=== PATIENT | male | born 1955 | race Asian ===

== ENCOUNTER → 2021-05-24 | Outpatient (CLI) | payer OTHER ==
[~2021-05-24] MED LIST: LIDOCAINE 4% 50 ML SOLUTION TP ONE
== END | disposition home or self-care (01) ==
LOC: HBOWC 11:26
PROVIDERS: ATTEND Podiatrist
DX: E11.622 Type 2 diabetes mellitus with other skin ulcer (principal); L97.322 Non-pressure chronic ulcer of left ankle with fat layer exposed; L97.111 Non-pressure chronic ulcer of right thigh limited to breakdown of skin; E11.40 Type 2 diabetes mellitus with diabetic neuropathy, unspecified; K21.9 Gastro-esophageal reflux disease without esophagitis; E78.5 Hyperlipidemia, unspecified; I48.91 Unspecified atrial fibrillation; I10 Essential (primary) hypertension; Z89.511 Acquired absence of right leg below knee; Z79.4 Long term (current) use of insulin; Z79.01 Long term (current) use of anticoagulants; Z89.021 Acquired absence of right finger(s); Z86.16 Personal history of COVID-19; Z87.891 Personal history of nicotine dependence; Z79.82 Long term (current) use of aspirin
CPT/HCPCS: 11042; 99205

== ENCOUNTER → 2021-06-07 | Outpatient (CLI) | payer OTHER | END | disposition home or self-care (01) | LOC: HBOWC 10:05 | PROVIDERS: ATTEND Podiatrist | DX: T87.81 Dehiscence of amputation stump (principal); E11.622 Type 2 diabetes mellitus with other skin ulcer; L97.322 Non-pressure chronic ulcer of left ankle with fat layer exposed; L97.111 Non-pressure chronic ulcer of right thigh limited to breakdown of skin; L97.812 Non-pressure chronic ulcer of other part of right lower leg with fat layer exposed; E11.40 Type 2 diabetes mellitus with diabetic neuropathy, unspecified; K21.9 Gastro-esophageal reflux disease without esophagitis; E78.5 Hyperlipidemia, unspecified; I48.91 Unspecified atrial fibrillation; I10 Essential (primary) hypertension; Z79.4 Long term (current) use of insulin; Z79.01 Long term (current) use of anticoagulants; Z89.021 Acquired absence of right finger(s); Z86.16 Personal history of COVID-19; Z87.891 Personal history of nicotine dependence; Z79.82 Long term (current) use of aspirin; Y83.5 Amputation of limb(s) as the cause of abnormal reaction of the patient, or of later complication, without mention of misadventure at the time of the procedure; Y92.238 Other place in hospital as the place of occurrence of the external cause | CPT/HCPCS: 11042; G0463 ==

== ENCOUNTER → 2021-07-05 | Outpatient (CLI) | payer OTHER ==
[~2021-07-05] MED LIST changes: +LIDOCAINE 2% 5 ML JELLY TP ONE
== END | disposition home or self-care (01) ==
LOC: HBOWC 10:27
PROVIDERS: ATTEND Podiatrist
DX: T87.81 Dehiscence of amputation stump (principal); E11.622 Type 2 diabetes mellitus with other skin ulcer; L97.322 Non-pressure chronic ulcer of left ankle with fat layer exposed; L97.112 Non-pressure chronic ulcer of right thigh with fat layer exposed; L97.812 Non-pressure chronic ulcer of other part of right lower leg with fat layer exposed; E11.40 Type 2 diabetes mellitus with diabetic neuropathy, unspecified; K21.9 Gastro-esophageal reflux disease without esophagitis; E78.5 Hyperlipidemia, unspecified; I48.91 Unspecified atrial fibrillation; I10 Essential (primary) hypertension; Z79.4 Long term (current) use of insulin; Z79.01 Long term (current) use of anticoagulants; Z89.021 Acquired absence of right finger(s); Z86.16 Personal history of COVID-19; Z87.891 Personal history of nicotine dependence; Z79.82 Long term (current) use of aspirin; Y83.5 Amputation of limb(s) as the cause of abnormal reaction of the patient, or of later complication, without mention of misadventure at the time of the procedure
CPT/HCPCS: 11042; G0463